=== PATIENT | female | born 1945 | race Caucasian/White ===

== ENCOUNTER → 2017-11-26 16:06 | Outpatient (CLI) | payer OTHER, SELFPAY ==
[2017-11-26 18:19] LABS: Free T3 3.2 pg/mL (2.18-3.98); T4 Free Direct 0.71 ng/dL (0.76-1.46); Thyroid Stim Hormone (TSH) 0.32 uIU/mL (0.358-3.74)
== END ==
PROVIDERS: Family Provider Family Medicine; PCP Family Medicine; Visit Provider Family Medicine
DX: E03.9 Hypothyroidism, unspecified (principal)
CPT/HCPCS: 36415; 84439; 84443; 84481

== ENCOUNTER → 2018-02-02 16:39 | Outpatient (CLI) | payer OTHER, SELFPAY ==
[2018-02-02 17:13] LABS: Absolute Lymphocyte Count 1.69 X10^3/ul (0.83-4.51); Absolute Neutrophil Count 1.8 X10^3/uL (2.0-7.7); Basophil# 0.01 X10^3/uL; Basophil% 0.2 % (0-1); Eosinophil# 0.03 X10^3/uL; Eosinophils% 0.7 % (0-5); Hemoglobin 13.2 g/dl (12.0-15.0); Lymphocyte # 1.69 X10^3/ul (4.0); Lymphocyte % 40.3 % (19-41); Mean Corpuscular Hgb 29.1 pg (27.0-32.0); Mean Corpuscular Volume 88.3 fL (81-99); Mean Platelet Vol. 11.2 fl (6.2-12.0); Monocyte# 0.64 X10^3/uL; Monocyte% 15.3 % (0-10); Neutrophil # 1.81 X10^3/uL (2.7-7.7); Neutrophil % 43.3 % (47-70); Platelet Count 142 K/mm3 (150-450); RBC Distribution Width CV 13.3 % (11.6-14.6); Red Blood Count 4.53 M/mm3 (4.2-5.4); White Blood Count 4.2 K/mm3 (4.4-11.0)
[2018-02-02 17:15] LABS: POSITIVE COUNT NO; POSITIVE DIFFERENTIAL NO; POSITIVE MORPHOLOGY NO
[2018-02-02 17:55] LABS: AST(SGOT) 27 U/L (15-37); Alanine Aminotransfer ALT/SGPT 28 U/L (13-56); Alkaline Phosphatase 84 U/L (45-117); Anion Gap 9 (5-15); BUN 15 mg/dL (7-18); BUN/Creat Ratio 16.7 RATIO (10-20); Chloride 106 mmol/L (98-107); Cholesterol 191 mg/dL (200); EST Glomerular Filtration Rate 66 mL/min (>60); Est Glom Filt Rate - Afr Amer 79 mL/min (>60); Globulin 3.9 g/dL (2.2-4.2); Glucose 85 mg/dL (74-106); High Density Lipoprotein 71 mg/dL; Protein, Total 7.9 g/dL (6.4-8.2); Sodium Level 140 mmol/L (136-145); Triglycerides 150 mg/dL; Very Low Density Lipoprotein 30 mg/dL (5-40)
== END ==
PROVIDERS: Family Provider Family Medicine; PCP Family Medicine; Visit Provider Family Medicine
DX: E78.00 Pure hypercholesterolemia, unspecified (principal); M79.1 Myalgia; R53.83 Other fatigue
CPT/HCPCS: 36415; 80053; 80061; 85025

== ENCOUNTER → 2018-03-02 10:37 | Outpatient (CLI) | payer OTHER, SELFPAY ==
[2018-03-02 11:43] LABS: T4 Free Direct 0.75 ng/dL (0.76-1.46); Thyroid Stim Hormone (TSH) 4.85 uIU/mL (0.358-3.74)
== END ==
PROVIDERS: Family Provider Family Medicine; PCP Family Medicine; Visit Provider Family Medicine
DX: E03.9 Hypothyroidism, unspecified (principal)
CPT/HCPCS: 36415; 84439; 84443; 84480

== ENCOUNTER → 2018-06-12 10:53 | Outpatient (CLI) | payer OTHER, SELFPAY ==
--- NOTE | 2018-06-12 10:57 | BI_ITS ---
MAMMOGRAPHY - BILATERAL SCREENING REASON FOR EXAM: Female, 72 years old. Routine annual screening examination. PERTINENT HISTORY: Non-contributory. TECHNIQUE: Digital bilateral breast elizabeth (3D mammographic acquisition) in the CC and MLO projections. 2-D mediolateral oblique (MLO) and craniocaudad (CC) views of both breasts were obtained. CAD: Full Field Digital Mammography with Computer Added Detection was performed. COMPARISON: Comparison is made with prior operative examination dated October 03, 2005. FINDINGS: Breast Composition: There are scattered areas of fibroglandular density. There are no dominant masses or suspicious calcifications. No other significant abnormalities are identified. There has been no significant change since the prior study. BI/SCREENING MAMM (CAD), BILAT IMPRESSION: Stable bilateral screening mammogram. Yearly follow-up mammogram recommended. (A) ASSESSMENT CATEGORY: BIRADS Category 1: Negative. A letter regarding these results will be sent to the patient by the facility within 30 days. Approximately 10% of breast cancers are not detected by mammography. A normal mammogram should not delay biopsy of a clinically suspicious abnormality. [id number] Electronically Signed: Giovany Puckett MD at 10:12 EDT Tel [phone], Service support ,
== END ==
PROVIDERS: Family Provider Family Medicine; PCP Family Medicine; Visit Provider Family Medicine
DX: Z12.31 Encounter for screening mammogram for malignant neoplasm of breast (principal)
CPT/HCPCS: 77063; 77067

== ENCOUNTER → 2018-06-18 16:31 | Outpatient (CLI) | payer OTHER, SELFPAY ==
[2018-06-18 17:36] LABS: T3 Total - Triiodothyronine 1.03 ng/mL (0.6-1.81); T4 Free Direct 0.67 ng/dL (0.76-1.46); Thyroid Stim Hormone (TSH) 2.76 uIU/mL (0.358-3.74)
== END ==
LOC: LAB.FUTURE 12-19 00:42 → BFHLAB 11-07 08:21
PROVIDERS: Family Provider Family Medicine; PCP Family Medicine; Referring Provider Family Medicine; Visit Provider Family Medicine
DX: E03.9 Hypothyroidism, unspecified (principal)
CPT/HCPCS: 36415; 84439; 84443; 84480

== ENCOUNTER → 2018-10-13 11:34 | Outpatient (CLI) | payer OTHER, SELFPAY ==
[2018-10-13 13:19] LABS: T3 Total - Triiodothyronine 1.16 ng/mL (0.6-1.81)
[2018-10-13 13:21] LABS: T4 Free Direct 0.76 ng/dL (0.76-1.46); Thyroid Stim Hormone (TSH) 3.02 uIU/mL (0.358-3.74)
--- OUTSIDE RECORDS SUMMARY | 2018-12-15 09:13 | XMS RPT_ITS ---
:1945 Author Organization [place] Support Name Relationship Address Phone JAG BURDICK Unavailable [address] + [place] [address] LOUSCH Unavailable [address] + [place] [address] LYNSEY ADLER Unavailable [address] + [place] [address] JAG BURDICK Unavailable Unavailable + [facility] Unavailable [address] + [place] [address] JAG BURDICK Unavailable Unavailable + L[facility] Unavailable [address] + [place] [address] JAG BURDICK Unavailable . + [place] [address] LOUSCH Unavailable [address] + [place] [address] HEAVENLY JAG Unavailable Unavailable + [place] [address] LOUSCH Unavailable [address] + [place] [address] LYNSEY ADLER Unavailable [address] [phone] [place] [address] JAG BURDICK Unavailable . + [place] [address] LOUSCH Unavailable [address] + [place] [address] LYNSEY ADLER Unavailable [address] [phone] [place] [address] JAG BURDICK Unavailable . + [place] [address] LOUSCH Unavailable [address] + [place] [address] LYNSEY ADLER Unavailable [address] [phone] [place] [address] JAG DRAPER Unavailable . + [place] [address] LOUSCH Unavailable [address] + [place] [address] LYNSEY ADLER Unavailable [address] [phone] [place] [address] Care Team Providers Name Role Phone Malys, Tiny Attending Unavailable Malys, Tiny Primary Care Unavailable Malys, Tiny Referring Unavailable Malys, Tiny Attending Unavailable Malys, Tiny Referring Unavailable Malys, Tiny Primary Care Unavailable Slaby, Marky Attending Unavailable Malys, Tiny Referring Unavailable Malys, Tiny Primary Care Unavailable Malys, Tiny Attending Unavailable Malys, Tiny Primary Care Unavailable Malys, Tiny Referring Unavailable Malys, Tiny Attending Unavailable Malys, Tiny Primary Care Unavailable Malys, Tiny Attending Unavailable Malys, Tiny Referring Unavailable Malys, Tiny Primary Care Unavailable Malys, Tiny Attending Unavailable Malys, Tiny Primary Care Unavailable Malys, Tiny Referring Unavailable Malys, Tiny Attending Unavailable Malys, Tiny Primary Care Unavailable Malys, Tiny Referring Unavailable PROBLEMS PROBLEMS DATE TYPE CONDITION / CODE ATTENDING STATUS SOURCE 10/13/2018 Unknown E03.9 - Malys, Tiny Active [place] Hypothyroidism, Community unspecified / Hospital E03.9(ICD-10) Repository 02/02/2018 Unknown E78.00 - Pure Malys, Tiny Active [place] hypercholesterole Community marj, unspecified Hospital / E78.00(ICD-10) Repository 02/02/2018 Unknown R53.83 - Other Malys, Tiny Active [place] fatigue / Community R53.83(ICD-10) Hospital Repository 02/02/2018 Unknown M79.1 - Myalgia / Mal[place], Tiny Active [place] M79.1(ICD-10) [facility] Hospital Repository PROCEDURES PROCEDURES No Procedure Records FoundRESULTS RESULTS T3 TOTAL - TRIIODOTHYRONINE Collected: 10/13/2018 Status: F Source: [place] 11:43 AM [facility] HOSPITAL REPOSITORY TYPE CODE TESTS RESULT OUT OF RANGE REFERENCE UNITS LAB L501.9186 0.6-1.81 ng/mL Normal T3 Total 1.16 Performed By: #### L501.9186 #### [facility] [address] [place], [address] THYROID STIM HORMONE Collected: 10/13/2018 Status: F Source: [place] (TSH) 11:43 AM [facility] REPOSITORY TYPE CODE TESTS RESULT OUT OF RANGE REFERENCE UNITS LAB L501.9520 0.358-3.74 uIU/mL Normal TSH 3.02 Performed By: #### L501.9520, L506.0400 #### [facility] [address] [place], [address] T4 FREE DIRECT Collected: 10/13/2018 Status: F Source: [place] 11:43 AM [facility] REPOSITORY TYPE CODE TESTS RESULT OUT OF RANGE REFERENCE UNITS LAB L506.0400 0.76-1.46 ng/dL Normal T4 FREE 0.76 DIRECT Performed By: #### L501.9520, L506.0400 #### [facility] [address] [place] [address] [place], [address] THYROID STIM HORMONE Collected: 06/18/2018 Status: F Source: [place] (TSH) 4:36 PM [facility] REPOSITORY Order Comment: Has Patient had X-rays with Contrast this admission? N Is Patient on Heparin? N TYPE CODE TESTS RESULT OUT OF RANGE REFERENCE UNITS LAB L501.9520 0.358-3.74 uIU/mL Normal TSH 2.76 Performed By: #### L501.9520, L506.0400 #### [facility] [address] [place], [address] T4 FREE DIRECT Collected: 06/18/2018 Status: F Source: [place] 4:36 PM [facility] REPOSITORY Order Comment: Has Patient had X-rays with Contrast this admission? N Is Patient on Heparin? N TYPE CODE TESTS RESULT OUT OF REFERENCE UNITS RANGE LAB L506.0400 0.76-1.46 ng/dL Low T4 FREE 0.67 DIRECT Performed By: #### L501.9520, L506.0400 #### [facility] [address] [place], [address] T3 TOTAL - TRIIODOTHYRONINE Collected: 06/18/2018 Status: F Source: [place] 4:36 PM [facility] REPOSITORY TYPE CODE TESTS RESULT OUT OF RANGE REFERENCE UNITS LAB L501.9186 0.6-1.81 ng/mL Normal T3 Total 1.03 Performed By: #### L501.9186 #### [facility] [address] [place], [address] SCREENING MAMM (CAD), Observed: 06/12/2018 Status: F Source: [place] BILAT 10:57 AM [facility] REPOSITORY [facility] Imaging Services [address] [place] [address] SCREENING MAMM (CAD), BILAT MR#: [id number] Acct: [id number] Name: SAMANTHA HAWLEY Rep #: [id number] : 1945 F 72 From: Giovany Puckett MD PCP: Tiny Sharma DO Status: REG CLI Study: SCREENING MAMM (CAD), BILAT Date of Exam: 06/12/18 Exam# [id number] Ordering Dr: Tiny Sharma DO MAMMOGRAPHY - BILATERAL SCREENING REASON FOR EXAM: Female, 72 years old. Routine annual screening examination. PERTINENT HISTORY: Non-contributory. TECHNIQUE: Digital bilateral breast elizabeth (3D mammographic acquisition) in the CC and MLO projections. 2-D mediolateral oblique (MLO) and craniocaudad (CC) views of both breasts were obtained. CAD: Full Field Digital Mammography with Computer Added Detection was performed. COMPARISON: Comparison is made with prior operative examination dated October 03, 2005. FINDINGS: Breast Composition: There are scattered areas of fibroglandular density. There are no dominant masses or suspicious calcifications. No other significant abnormalities are identified. There has been no significant change since the prior study. BI/SCREENING MAMM (CAD), BILAT IMPRESSION: Stable bilateral screening mammogram. Yearly follow-up mammogram recommended. (A) ASSESSMENT CATEGORY: BIRADS Category 1: Negative. A letter regarding these results will be sent to the patient by the facility within 30 days. Approximately 10% of breast cancers are not detected by mammography. A normal mammogram should not delay biopsy of a clinically suspicious abnormality. [id number] Electronically Signed: Giovany Puckett MD at 10:12 EDT Tel [phone], Service support , CC: Tiny Sharma DO Director Group Sales: Signed PLASTIC SURGERY Observed: 05/16/2018 Status: F Source: [place] VISIT REPORT 6:51 PM [facility] REPOSITORY [place] [facility] [address] [place] [address] OFFICE VISIT Date of Service: 04/28/18 MR#: [id number] Acct: [id number] Name: SAMANTHA HAWLEY Rep #: [id number] : 1945 Provider: Marky Feliciano MD Age/Sex: 72/F Location: [facility] Status: Signed Intake Vital Signs04/28/18 Height 5 ft 3.5 in 04/28/18 Weight: 129 lb 4 oz Intake Visit Reasons: evaluation breast reduction Sales Order Administrator Required: No Accompanied by: None Allergies amoxicillin Allergy (Verified 04/28/18 10:54) Itching Medications Nature Thyroid 97.5 mcg PO DAILY 09/03/16 [History Confirmed 04/28/18] Is last menstrual period known: No Post menopausal: Yes Patient : No PFSH Medical History Hypothyroid (Acute) IBS (irritable bowel syndrome) (Acute) Surgical History History of broken nose (Acute) History of left knee surgery (Acute) History of tubal ligation (Acute) Family History Aunt Breast cancer Cancer Father Diabetes Hypertension Mother Heart disease Sister Lung cancer Osteoporosis Social History Smoking Status: Former smoker alcohol intake: never substance use type: does not use additional social history: DOES NOT USE ASPIRIN DOES NOT USE IBUPROFEN HPI evaluation breast reduction: Details: HISTORY OF PRESENT ILLNESS 72 year old woman presents with complaints of bilateral macromastia as well as associated painful symptomatology of neck pain, thoracic back pain, bilateral shoulder pain from shoulder grooving from the weight of her breasts on her bra straps, and inframammary intertrigo for which she uses powder for relief. She denies any trauma to her breasts. Denies any nipple discharge. She has not seen a chiropractor for her back pain. Her last mammogram was about 40 years ago. She does not have a family history of breast cancer. She also complains of numbness involving her small finger and ring finger bilaterally but mostly on the right side. She presents at this time for further evaluation and treatment. REVIEW OF SYSTEMS General - Denies fever, fatigue, and weight loss. Eyes - Denies cataracts and glaucoma. ENT - Denies nasal congestion and sore throat. Endocrine - Denies excessive thirst and urination. Has thyroid disease. Skin - Denies suspicious lesions and skin cancer. Has inframammary intertrigo for which she uses powder for relief. Musculoskeletal - Denies joint pain, joint stiffness, weakness of muscles and joints, and arthritis. Has back pain involving cervical and thoracic area. Has bilateral shoulder pain from shoulder grooving from the weight of her breasts on her bra straps. Neuro - Denies headaches. Has numbness involving small finger and ring finger bilaterally mostly on the right side. Cardiovascular - Denies chest pain, fatigue, and shortness of breath with exertion. Psych - Denies anxiety and depression. Has some claustrophobia. Respiratory - Denies chronic cough and shortness of breath. Gastrointestinal - Denies nausea, vomiting, diarrhea. Has constipation. Hematologic - Denies abnormal bruising and bleeding. Genitourinary - Denies hematuria and urinary frequency. PHYSICAL EXAM General - Alert and oriented. Patient's bra size is a 36 DD. HEENT - PERRL. EOMI. Throat is clear. Neck - Supple. No bony tenderness. There is some pericervical soft tissue tenderness. Lungs- Clear to auscultation. Heart - Regular rate and rhythm. Breasts - Patient has bilateral macromastia. No breast masses palpable. No axillary adenopathy noted. Distance from midclavicular line on the left to the nipple is 29 cm and from the nipple to the inframammary fold is 11 cm. Distance from midclavicular line on the right to the nipple is 28 cm and from nipple to the inframammary fold is 10 cm. Nipple areolar complex diameter is 6 cm bilaterally. No active inframammary intertrigo noted at this time. Abdomen - Soft and non distended. Back - No bony tenderness noted. There is perivertebral soft tissue tenderness in the upper thoracic area. Extremities - FROM. No axillary adenopathy. Radial pulses are palpable. There is some bilateral shoulder tenderness with shoulder grooving from the weight of her breasts on her bra straps. Neuro - CN II-XII grossly intact. Psych - Normal and mood and affect. ASSESSMENT 1. Bilateral macromastia 2. Neck pain 3. Thoracic back pain 4. Bilateral shoulder pain from shoulder grooving from the weight of the breasts on her bra straps. 5. Inframammary intertrigo PLAN Discussed with the patient the procedure of breast reduction mammoplasty. I feel this procedure would be beneficial in this patient as it would help relieve her painful symptomatology. Her last mammogram was about 40 years ago. She will need one preoperatively. I would remove approximately 450 g of breast tissue per side. We will send the tissue to pathology for analysis to rule out carcinoma. Discussed with patient the extent of scarring for this procedure. The biggest risk for wound healing problems is the T-zone area. Usually wound care and sometimes antibiotics are necessary for healing in this area. She would have drains in for a few days depending on the amount of tissue that is removed. She will be on antibiotics until the drains are removed. Surgery will be done under general anesthesia with a surgical observation overnight stay in the hospital. We will write a letter to her insurance carrier for medical approval. Patient was informed of the risks and complications of the procedure including alternatives to surgery. These were discussed with her personally. She voices understanding and wishes to proceed with the current plan of sending a letter to her insurance carrier for medical approval. Once approved, she will return for a preop visit to answer any last minute questions and to sign consents. She thinks her [employer] [place] is her primary insurance and Medicare is her secondary. If so then will send the letter. If Medicare is the primary, then they don't approve the procedure preop. She would then need to sign a Medicare waiver. Assessment AND Plan Problems 1. Breast hypertrophy N62 2. Chronic neck pain M54.2; G89.29 3. Chronic thoracic back pain M54.6; G89.29 4. Bilateral shoulder pain M25.511; M25.512 5. Intertrigo L30.4 Coding Level of Care Code Off vis,new,level 4 Diagnoses Breast hypertrophy N62 Chronic neck pain M54.2; G89.29 Chronic thoracic back pain M54.6; G89.29 Bilateral shoulder pain M25.511; M25.512 Intertrigo L30.4 05/16/18 1851 <Electronically signed by Marky Feliciano MD> Date Marky Feliciano MD Cosigner Signature: Date (if applicable) CC: Tiny Sharma DO THYROID STIM HORMONE Collected: 03/02/2018 Status: F Source: [place] (TSH) 10:41 AM [facility] REPOSITORY Order Comment: Has Patient had X-rays with Contrast this admission? N Is Patient on Heparin? N TYPE CODE TESTS RESULT OUT OF RANGE REFERENCE UNITS LAB L501.9520 0.358-3.74 uIU/mL High TSH 4.85 Performed By: #### L501.9520, L506.0400 #### [facility] [address] [place] [address]. [place], [place], [address] T4 FREE DIRECT Collected: 03/02/2018 Status: F Source: [place] 10:41 AM [facility] REPOSITORY Order Comment: Has Patient had X-rays with Contrast this admission? N Is Patient on Heparin? N TYPE CODE TESTS RESULT OUT OF REFERENCE UNITS RANGE LAB L506.0400 0.76-1.46 ng/dL Low T4 FREE 0.75 DIRECT Performed By: #### L501.9520, L506.0400 #### [facility] [address] [place], [place], [address] T3 TOTAL - TRIIODOTHYRONINE Collected: 03/02/2018 Status: F Source: [place] 10:41 AM [facility] REPOSITORY TYPE CODE TESTS RESULT OUT OF RANGE REFERENCE UNITS LAB L501.9186 0.6-1.81 ng/mL Normal T3 Total 1.10 Performed By: #### L501.9186 #### [facility] [address] [place], [place], [address] CBC W/DIFF, AUTOMATED Collected: 02/02/2018 Status: F Source: [place] 4:46 PM [facility] REPOSITORY TYPE CODE TESTS RESULT OUT OF RANGE REFERENCE UNITS LAB L100.1000 4.4-11.0 K/mm3 Low WBC 4.2 LAB L100.1200 4.2-5.4 M/mm3 Normal RBC 4.53 LAB L100.1300 12.0-15.0 g/dl Normal HGB 13.2 LAB L100.1400 37-47 % Normal HCT 40.0 LAB L100.1500 81-99 fL Normal MCV 88.3 LAB L100.1600 27.0-32.0 pg Normal MCH 29.1 LAB L100.1700 32-36 g/gl Normal MCHC 33.0 LAB L100.1810 11.6-14.6 % Normal RDW CV 13.3 LAB L100.1820 35.1-43.9 fl Normal RDW SD 43.0 LAB L100.1900 150-450 K/mm3 Low PLT 142 LAB L100.2000 6.2-12.0 fl Normal MPV 11.2 LAB L100.2100 47-70 % Low NEUT% 43.3 LAB L100.2200 19-41 % Normal LY% 40.3 LAB L100.2300 0-10 % High MONO% 15.3 LAB L100.2400 0-5 % Normal EO% 0.7 LAB L100.2500 0-1 % Normal BASO% 0.2 LAB L100.2550 0.0-0.9 % Normal IM GRAN % 0.200 Result Comment: IG% - Immature Granulocytes (promyelocytes, myelocytes and metamyelocytes) > 1% indicates that a LEFT SHIFT is Present. LAB L100.2620 2.0-7.7 X10 3/uL Low Absolute Neut 1.8 LAB L100.2720 0.83-4.51 X10 3/ul Normal Absolute Lymph 1.69 Performed By: #### L100.0100 #### [facility] [address], [address] COMPREHENSIVE METABOLIC Collected: 02/02/2018 Status: F Source: [place] GARVIN 4:46 PM [facility] REPOSITORY TYPE CODE TESTS RESULT OUT OF RANGE REFERENCE UNITS LAB L501.0100 74-106 mg/dL Normal GLU 85 Result Comment: Please note revised GLUCOSE reference range effective 2017. LAB L501.1000 7-18 mg/dL Normal BUN 15 LAB L501.1100 0.55-1.02 mg/dL Normal CREAT,SERUM 0.90 Result Comment: The validity of the calculated GFR AND GFRAA in patients over 70 years has not been determined. Clinical correlation is essential. LAB L501.1110 >60 mL/min Normal EST GFR 66 Result Comment: Non- GFR Calc LAB L501.1115 >60 mL/min Normal EST GFR - AA 79 Result Comment: GFR Calc LAB L501.1300 10-20 RATIO Normal BUN/CRE 16.7 LAB L501.1500 6.4-8.2 g/dL T Normal PROT 7.9 LAB L501.1800 3.2-5.0 g/dL Normal ALB 4.0 LAB L501.1950 2.2-4.2 g/dL Normal GLOB 3.9 LAB L501.2000 0.9-2.4 RATIO Normal A/G 1.0 LAB L501.2200 8.5-10.1 mg/dL CA Normal 9.0 LAB L501.4100 15-37 U/L Normal AST 27 LAB L501.4305 45-117 U/L Normal ALK P 84 LAB L501.4405 13-56 U/L Normal ALT 28 LAB L501.4600 0.20-1.00 mg/dL T Normal BILI 0.40 LAB L501.5300 136-145 mmol/L NA Normal 140 LAB L501.5600 3.5-5.1 mmol/L K Normal 4.0 LAB L501.5900 98-107 mmol/L CL Normal 106 LAB L501.6100 21.0-32.0 mmol/L Normal CO2 25.0 LAB L501.6200 5-15 Normal GAP 9 Performed By: #### L500.4050, L500.4100 #### [facility] [address] [place], [place], [address] LIPID PROFILE Collected: 02/02/2018 Status: F Source: [place] 4:46 PM [facility] REPOSITORY TYPE CODE TESTS RESULT OUT OF RANGE REFERENCE UNITS LAB L501.4900 200 mg/dL Normal CHOL 191 Result Comment: <200 mg/dL Desirable 200-240 mg/dL Borderline >240 mg/dL High Risk LAB L501.5000 mg/dL Normal TRIG 150 Result Comment: The drugs N-Acetylcysteine and Metamizole may falsely depress this assay. Serum Triglycerides Reference Interval Normal <150 mg/dL Borderline high 150 - 199 mg/dL High 200 - 499 mg/dL Very High > or = 500 mg/dL LAB L501.6400 mg/dL Normal HDL 71 Result Comment: The drugs N-Acetylcysteine and Metamizole may falsely depress this assay. Reference Range HDL <40 mg/dL Low HDL Cholesterol HDL >or= 60 mg/dL High HDL Cholesterol LAB L501.6500 0-130 mg/dL Normal LDL 90 LAB L501.6600 5-40 mg/dL Normal VLDL 30 Performed By: #### L500.4050, L500.4100 #### [facility] [place], [place], [address] FREE T3 Collected: 11/26/2017 Status: F Source: [place] 4:16 PM [facility] REPOSITORY TYPE CODE TESTS RESULT OUT OF RANGE REFERENCE UNITS LAB L501.43678 2.18-3.98 pg/mL Normal FREE T3 3.2 Performed By: #### L501.98605, L501.9520, L506.0400 #### [facility] [address] [place], [address] THYROID STIM HORMONE Collected: 11/26/2017 Status: F Source: [place] (TSH) 4:16 PM [facility] REPOSITORY TYPE CODE TESTS RESULT OUT OF RANGE REFERENCE UNITS LAB L501.9520 0.358-3.74 uIU/mL Low TSH 0.32 Performed By: #### L501.38185, L501.9520, L506.0400 #### [facility] [address] [place], [address] T4 FREE DIRECT Collected: 11/26/2017 Status: F Source: [place] 4:16 PM [facility] REPOSITORY TYPE CODE TESTS RESULT OUT OF REFERENCE UNITS RANGE LAB L506.0400 0.76-1.46 ng/dL Low T4 FREE 0.71 DIRECT Performed By: #### L501.46121, L501.9520, L506.0400 #### [facility] [address] [place], [address] ALLERGIES ALLERGIES DATE TYPE / CODE NAME / CODE REACTION SEVERITY SOURCE 04/28/2018 Drug amoxicillin/ Itching Unknown [facility] Allergy/4160 [id number]( Hospital [address](SNOMED XNORM) Repository CT) ENCOUNTERS ENCOUNTERS ADMIT/DISCHARGE ACCOUNT ADMITTING ENCOUNTER LOCATION SOURCE NUMBER CLASS 10/13/2018 [id number] Ambulatory [place] 7 [facility] ing:LAB.FUTUR Repository E 06/18/2018 [id number] Ambulatory [place] 6 [facility] ing:LAB.FUTUR Repository E 06/12/2018 [id number] Ambulatory [place] 7 [facility] ing:OPBI Repository 04/28/2018/ [id number] Ambulatory BMS[facility]:B [place] 8 0 [place] Repository 03/02/2018 [id number] Ambulatory [place] 7 [facility] ing:LAB.FUTUR Repository E 02/04/2018 [id number] Ambulatory [place] 0 [facility] ing:LAB.FUTUR Repository E 02/02/2018 [id number] Ambulatory [place] 5 [facility] ing:LAB Repository 11/26/2017 [id number] Ambulatory [place] 7 [facility] ing:LAB.FUTUR Repository E PAYERS PAYERS ENCOUNTER GUARANTOR PAYER SUBSCRIBER SOURCE 10/13/2018 SAMANTHA [id number] SR Insurance:MEDICAL MIKUSDOB: [address] [id number] [address]Bty: (330) Number: Repository [phone] () [id number] Date:6588-63-58UE [place] [id number]: 10/13/2018 Secondary NOT GIVENUNK [place] Insurance:SELF PAY [facility] Number: Effective Repository Date:2018-06-21 06/18/2018 SAMANTHA R Primary SAMANTHA R [place] [id number] SR Insurance:MEDICAL MIKUSDOB: [address] [id number] [address]Rbx: (330) Number: Repository [phone] () [id number] Date:2400-71-60PC [place] [id number]: 06/18/2018 Secondary NOT GIVENUNK [place] Insurance:SELF PAY [facility] Number: Effective Repository Date:2018-06-14 06/12/2018 SAMANTHA R Primary SAMANTHA R [place] [id number] SR Insurance:MEDICAL MIKUSDOB: [address] [id number] [facility] [address]Eoa: (330) Number: Repository [phone] () [id number] Date:0130-20-25IG [place] [id number]: 06/12/2018 Secondary NOT GIVENUNK [place] Insurance:SELF PAY [facility] Number: Effective Repository Date:2018-05-21 04/28/2018 SAMANTHA R Primary SAMANTHA R [place] [id number] SR Insurance:MEDICAL MIKUSDOB: [address] [id number] [facility] [address]Bse: (330) Number: Repository [phone] () [id number] Date:7499-62-31DO [place] [id number]: 04/28/2018 Secondary NOT GIVENUNK [place] Insurance:SELF PAY [facility] Number: Effective Repository Date:2018-04-28 03/02/2018 Samantha R Primary SAMANTHA R [place] [id number] SR Insurance:MEDICAL MIKUSDOB: [address] [id number] Hospital [address]Dsr: (330) Number: Repository [phone] () [id number] Date:7073-15-38WH [place] [id number]: 03/02/2018 Secondary NOT GIVENUNK [place] Insurance:SELF PAY [facility] Number: Effective Repository Date:2018-02-09 02/04/2018 Samantha R Primary SAMANTHA R [place] [id number] SR Insurance:MEDICAL MIKUSDOB: [address] [id number] Hospital [address]Thr: (330) Number: Repository [phone] () [id number] Date:3103-13-95[place] [id number]: 02/04/2018 Secondary NOT GIVENUNK [place] Insurance:SELF PAY [facility] Number: Effective Repository Date:2018-02-04 02/02/2018 Samantha R Primary SAMANTHA R [place] [id number] SR Insurance:MEDICAL MIKUSDOB: [address] [id number] [facility] [address]Tpb: (330) Number: Repository [phone] () [id number] Date:5941-54-38[place] [id number]: 02/02/2018 Secondary NOT GIVENUNK [place] Insurance:SELF PAY [facility] Number: Effective Repository Date:2018-02-02 11/26/2017 Samantha R Primary SAMANTHA R [place] [id number] SR Insurance:MEDICAL MIKUSDOB: [address] [id number] [facility] [address]Uxp: (330) Number: Repository [phone] () [id number] Date:4344-06-14[address] [address]EE: 11/26/2017 Secondary NOT GIVENUNK [place] Insurance:SELF PAY [facility] Number: Effective Repository Date:2017-07-28
== END ==
LOC: LAB.FUTURE 09-05 11:11 → BFHLAB 11-07 08:20
PROVIDERS: Family Provider Family Medicine; PCP Family Medicine; Referring Provider Family Medicine; Visit Provider Family Medicine
DX: E03.9 Hypothyroidism, unspecified (principal)
CPT/HCPCS: 36415; 84439; 84443; 84480

== ENCOUNTER → 2019-05-11 11:37 | Outpatient (CLI) | payer OTHER, SELFPAY ==
[2018-04-28 10:52] VITALS: BMI 22.5
[2019-05-11 12:55] LABS: Free T3 2.7 pg/mL (2.18-3.98); Thyroid Stim Hormone (TSH) 2.49 uIU/mL (0.358-3.74)
== END ==
PROVIDERS: Family Provider Family Medicine; PCP Family Medicine; Referring Provider Family Medicine; Visit Provider Family Medicine
DX: E03.9 Hypothyroidism, unspecified (principal)
CPT/HCPCS: 36415; 84439; 84443; 84481

== ENCOUNTER → 2019-11-07 11:05 | Outpatient (CLI) | payer OTHER, SELFPAY ==
[2019-11-07 13:22] LABS: Free T3 3.9 pg/mL (2.18-3.98); T4 Free Direct 0.83 ng/dL (0.76-1.46); Thyroid Stim Hormone (TSH) 3.54 uIU/mL (0.358-3.74)
== END ==
LOC: LAB.FUTURE 11:09 → LAB 11:11
PROVIDERS: PCP Family Medicine; Referring Provider Family Medicine; Visit Provider Family Medicine
DX: E03.9 Hypothyroidism, unspecified (principal)
CPT/HCPCS: 36415; 84439; 84443; 84481

== ENCOUNTER → 2020-05-03 13:22 | Outpatient (CLI) | payer OTHER, SELFPAY | PROVIDERS: PCP Family Medicine; Visit Provider Family Medicine | DX: R19.7 Diarrhea, unspecified (principal) | CPT/HCPCS: 83630; 87177; 87209; 87493; 87506 ==

== ENCOUNTER → 2020-07-26 14:05 | Outpatient (CLI) | payer OTHER, SELFPAY ==
[2020-07-26 16:30] LABS: Free T3 2.5 pg/mL (2.18-3.98); T4 Free Direct 1.04 ng/dL (0.76-1.46); Thyroid Stim Hormone (TSH) 4.37 uIU/mL (0.358-3.74)
== END ==
PROVIDERS: PCP Family Medicine; Referring Provider Family Medicine; Visit Provider Family Medicine
DX: E03.9 Hypothyroidism, unspecified (principal)
CPT/HCPCS: 36415; 84439; 84443; 84481

== ENCOUNTER → 2020-08-02 16:08 | Outpatient (CLI) | payer OTHER, SELFPAY ==
[2020-08-02 16:46] LABS: Absolute Lymphocyte Count 1.65 X10^3/uL (0.83-4.51); Absolute Neutrophil Count 2.6 X10^3/uL (2.0-7.7); Basophil# 0.01 X10^3/uL; Basophil% 0.2 % (0-1); Eosinophil# 0.01 X10^3/uL; Eosinophils% 0.2 % (0-5); Hematocrit 35.4 % (37-47); Hemoglobin 11.4 g/dL (12.0-15.0); Lymphocyte # 1.65 X10^3/ul (4.0); Lymphocyte % 33.7 % (19-41); Mean Corp Hgb Conc 32.2 g/dL (32-36); Mean Corpuscular Hgb 30.3 pg (27.0-32.0); Mean Corpuscular Volume 94.1 fL (81-99); Mean Platelet Vol. 10.7 fl (6.2-12.0); Monocyte# 0.63 X10^3/uL; Monocyte% 12.9 % (0-10); NRBC Flagged by Analyzer 0 % (0-5); Neutrophil # 2.55 X10^3/uL (2.7-7.7); Platelet Count 205 K/mm3 (150-450); RBC Distribution Width CV 13.8 % (11.6-14.6); RBC Distribution Width SD 46.1 fl (35.1-43.9); Red Blood Count 3.76 M/mm3 (4.2-5.4); White Blood Count 4.9 K/mm3 (4.4-11.0)
[2020-08-02 17:12] LABS: ALB/GLOB Ratio 0.9 RATIO (0.9-2.4); AST(SGOT) 26 U/L (15-37); Alanine Aminotransfer ALT/SGPT 35 U/L (13-56); Albumin, Serum 3.6 g/dL (3.2-5.0); Alkaline Phosphatase 62 U/L (45-117); Anion Gap 6 (5-15); BUN 20 mg/dL (7-18); BUN/Creat Ratio 28.9 RATIO (10-20); Calcium,Total 8.9 mg/dL (8.5-10.1); Chloride 100 mmol/L (98-107); Creatinine, Serum 0.69 mg/dL (0.55-1.02); EST Glomerular Filtration Rate 88 mL/min (>60); Est Glom Filt Rate - Afr Amer 106 mL/min (>60); Glucose 83 mg/dL (74-106); Lipase 446 U/L (73-393); Potassium 3.9 mmol/L (3.5-5.1); Protein, Total 7.6 g/dL (6.4-8.2); Sodium Level 134 mmol/L (136-145)
[2020-08-06 04:21] LABS: Carcinoembryonic Antigen 3.4 ng/mL (0.0-4.7)
== END ==
PROVIDERS: PCP Family Medicine; Visit Provider Family Medicine
DX: R10.32 Left lower quadrant pain (principal); R63.4 Abnormal weight loss; R19.7 Diarrhea, unspecified
CPT/HCPCS: 36415; 80053; 82378; 83690; 85025

== ENCOUNTER → 2020-08-09 16:01 | Outpatient (CLI) | payer OTHER, SELFPAY ==
[2018-04-28 10:52] VITALS: BMI 22.5
--- NOTE | 2020-08-09 16:06 | BD_ITS ---
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 COMPARISON: None. FINDINGS: Lumbar Spine (L1-L4): g/cm2 (0.946) / T-score (-2.1) / Z-score (-0.4) Findings are suggestive of osteopenia with a high fracture risk. Increased thoracic kyphosis. Left Femur Total: g/cm2 (0.787) / T-score (-1.7) / Z-score (0.0) Left Femoral Neck: g/cm2 (0.774) / T-score (-1.9) / Z-score (0.1) Right Femur Total: g/cm2 (0.768) / T-score (-1.9) / Z-score (-0.1) Right Femoral Neck: g/cm2 (0.738) / T-score (-2.2) / Z-score (-0.2) BD/Dexa Bone Density Study IMPRESSION: The patient is considered osteopenic as outlined below according to World Ori Organization (WHO) criteria with a high fracture risk. Reference Information: The T-score is the number of standard deviations above or below the standard which is normal for young adults at their peak bone mineral density. The World Health Organization (WHO) interprets the T-scores as follows: Above -1 Normal bone density Between -1 and -2.5 Osteopenia Equal to / or below -2.5 Osteoporosis As a practical clinical guideline, osteopenia may be graded as follows: Mild -1 through -1.5 Moderate -1.6 through -2.0 Severe -2.1 through -2.4 The Z-score is the number of standard deviations above or below age-matched controls. A Z-score of less than -1.5 would be considered abnormal. References: 1. NIH Osteoporosis and Related Bone Diseases www osteo.org 2. International Society for Clinical Densitometry www iscd.org 3. National Osteoporosis Foundation www nof.org Electronically Signed: Giovany Puckett, at 11:09 EST , Service support ,
== END ==
PROVIDERS: PCP Family Medicine; Referring Provider Family Medicine; Visit Provider Family Medicine
DX: Z13.820 Encounter for screening for osteoporosis (principal); Z78.0 Asymptomatic menopausal state
CPT/HCPCS: 77080

== ENCOUNTER → 2020-08-20 14:08 | Outpatient (CLI) | payer OTHER, SELFPAY ==
--- NOTE | 2020-08-20 14:11 | CT_ITS ---
STUDY: CT ABDOMEN AND PELVIS WITH CONTRAST REASON FOR EXAM: Female, 74 years old. Weight loss. RADIATION DOSAGE (If Supplied By Facility): CTDIvol = ( 10.15 ) mGy, DLP = ( 315.62 ) mGycm TECHNIQUE: Transaxial images were obtained from the dome of the diaphragm to the symphysis pubis with oral contrast. 100mL Isovue-300 was administered. Sagittal and coronal images were reconstructed. Individualized dose optimization techniques were used for this CT. COMPARISON: 09/05/2017. FINDINGS: The visualized lung bases are unremarkable. The visualized portions of the heart are within normal limits. Normal liver. Normal gallbladder and extrahepatic biliary system. Normal spleen. Normal pancreas. Normal bilateral adrenal glands. There is a small cyst in the upper pole but otherwise normal right kidney. There is no hydronephrosis. Normal visualized right ureter. The left kidney is normal in size cortical thickness and enhancement. There are multiple parapelvic renal cysts. There is no hydronephrosis. Normal visualized left ureter. The stomach is nondistended but grossly unremarkable. Normal small intestine. Large amount of feces throughout the colon. There is evidence of sigmoid diverticulosis without inflammatory change. The appendix is visualized and appears normal. Minimal atherosclerotic changes of the abdominal aorta without aneurysm or dissection. Normal inferior vena cava. Normal retroperitoneum. Normal urinary bladder. The uterus is anteverted and abnormal size. There are variations in enhancement as well as multiple small calcified foci suggesting fibroids. No adnexal mass. There is no pelvic lymphadenopathy. No free air or free fluid is seen within the peritoneal cavity. Normal abdominal wall. There are diffuse degenerative changes of the visualized lumbar spine. There is minimal anterolisthesis of L4 on L5 without pars defect. CT/Abdomen/Pelvis WITH Contrast IMPRESSION: 1. Large amount of colonic feces consistent with constipation. 2. Sigmoid diverticulosis. 3. Bilateral renal cysts. 4. Fibroid uterus. Electronically Signed: Karthikeyan Tabor DO at 23:57 EST Tel [phone], Service support ,
== END ==
PROVIDERS: PCP Family Medicine; Referring Provider Family Medicine; Visit Provider Family Medicine
DX: R74.8 Abnormal levels of other serum enzymes (principal); R63.4 Abnormal weight loss; R10.9 Unspecified abdominal pain
CPT/HCPCS: 74177; Q9967

== ENCOUNTER → 2020-10-30 16:05 | Outpatient (CLI) | payer OTHER, SELFPAY ==
[2018-04-28 10:52] VITALS: BMI 22.5
[2020-10-30 17:23] LABS: Free T3 2.5 pg/mL (2.18-3.98); T4 Free Direct 0.84 ng/dL (0.76-1.46); Thyroid Stim Hormone (TSH) 3.26 uIU/mL (0.358-3.74)
== END ==
PROVIDERS: PCP Family Medicine; Referring Provider Family Medicine; Visit Provider Family Medicine
DX: E03.9 Hypothyroidism, unspecified (principal)
CPT/HCPCS: 36415; 84439; 84443; 84481

== ENCOUNTER → 2021-02-25 14:15 | Outpatient (CLI) | payer OTHER, SELFPAY ==
[2018-04-28 10:52] VITALS: BMI 22.5
[2021-02-25 16:16] LABS: Free T3 2.6 pg/mL (2.18-3.98); T4 Free Direct 0.73 ng/dL (0.76-1.46); Thyroid Stim Hormone (TSH) 2.75 uIU/mL (0.358-3.74)
== END ==
PROVIDERS: PCP Family Medicine; Referring Provider Family Medicine; Visit Provider Family Medicine
DX: E03.9 Hypothyroidism, unspecified (principal)
CPT/HCPCS: 36415; 84439; 84443; 84481

== ENCOUNTER → 2022-06-13 | Outpatient (CLI) | payer OTHER, SELFPAY ==
[2022-06-13 16:26] LABS: Absolute Neutrophil Count 3.8 X10^3/uL (2.0-7.7); Basophil# 0.01 X10^3/uL; Basophil% 0.2 % (0-1); Eosinophil# 0.02 X10^3/uL; Eosinophils% 0.3 % (0-5); Hematocrit 36.9 % (37-47); Hemoglobin 12.7 g/dL (12.0-15.0); Lymphocyte % 27.6 % (19-41); Mean Corp Hgb Conc 34.4 g/dL (32-36); Mean Corpuscular Hgb 31.2 pg (27.0-32.0); Mean Corpuscular Volume 90.7 fL (81-99); Mean Platelet Vol. 12.1 fl (6.2-12.0); Monocyte% 12.3 % (0-10); NRBC Flagged by Analyzer 0 % (0-5); Neutrophil # 3.81 X10^3/uL (2.7-7.7); Neutrophil % 58.4 % (47-70); POSITIVE MORPHOLOGY YES; Platelet Count 105 K/mm3 (150-450); RBC Distribution Width CV 13.4 % (11.6-14.6); RBC Distribution Width SD 44.8 fl (35.1-43.9); Red Blood Count 4.07 M/mm3 (4.2-5.4); White Blood Count 6.5 K/mm3 (4.4-11.0)
[2022-06-13 16:28] LABS: Differential Indicated SCAN CRITERIA MET
[2022-06-13 17:02] LABS: ALB/GLOB Ratio 1.1 RATIO (0.9-2.4); AST(SGOT) 28 U/L (15-37); Alanine Aminotransfer ALT/SGPT 34 U/L (13-56); Albumin, Serum 3.9 g/dL (3.2-5.0); Alkaline Phosphatase 61 U/L (45-117); Anion Gap 6 (5-15); BUN 15 mg/dL (7-18); BUN/Creat Ratio 20.9 RATIO (10-20); Calcium,Total 8.8 mg/dL (8.5-10.1); Chloride 103 mmol/L (98-107); Creatinine, Serum 0.72 mg/dL (0.55-1.02); EST Glomerular Filtration Rate 84 mL/min (>60); Est Glom Filt Rate - Afr Amer 101 mL/min (>60); Free T3 2.5 pg/mL (2.18-3.98); Globulin 3.5 g/dL (2.2-4.2); Glucose 79 mg/dL (74-106); Potassium 3.9 mmol/L (3.5-5.1); Protein, Total 7.4 g/dL (6.4-8.2); Sodium Level 135 mmol/L (136-145); T4 Free Direct 0.76 ng/dL (0.76-1.46); Thyroid Stim Hormone (TSH) 1.93 uIU/mL (0.358-3.74)
[2022-06-13 17:20] LABS: Atypical Lymphocyte 1+ %
[2022-06-13 17:21] LABS: Platelet Estimate ADEQUATE (ADEQ); Red Cell Morphology NORM C+C NORMAL (NORM C&C)
== END | disposition home or self-care (01) ==
LOC: LAB 16:01
PROVIDERS: PCP Family Medicine; Referring Provider Family Medicine; Visit Provider Family Medicine
DX: E03.9 Hypothyroidism, unspecified (principal); Z51.81 Encounter for therapeutic drug level monitoring
CPT/HCPCS: 36415; 80053; 84439; 84443; 84481; 85025